=== PATIENT | male | born 1975 ===

== ENCOUNTER → 2017-12-25 | Emergency (ER) | payer OTHER ==
[~2017-12-25] VITALS: Ht 167.6 cm; Wt 92.5 kg
[~2017-12-25] MED LIST: CARDIZEM PO; CLEOCIN HCL300 MG PO; IBUPROFEN800 MG PO; NEURONTIN300 MG PO; NUCYNTA50 MG PO; TOBREX5 ML OP; VASOTEC10 MG; VASOTEC10 MG NGT; VASOTEC10 MG PO; VASOTEC5 MG; ZOCOR20 MG PO; ZYRTEC10 MG PO
== END | disposition home or self-care (01) ==
LOC: ER 13:14 → EMR PED 13:42
DX: I10 Essential (primary) hypertension (principal); M54.5 Low back pain

== ENCOUNTER 2018-09-10 11:13 | Outpatient (CLI) | payer OTHER | END 2018-09-10 11:30 | disposition home or self-care (01) | LOC: LAB 11:13 | DX: Z87.442 Personal history of urinary calculi (principal); M54.89 Other dorsalgia; Z00.00 Encounter for general adult medical examination without abnormal findings ==